=== PATIENT | female | born 1960 | race Caucasian/White ===

== ENCOUNTER 2018-02-19 12:06 | Inpatient (IN) | payer OTHER ==
[~2018-02-19] VITALS: Ht 162.6 cm; Wt 85.5 kg
--- NOTE | ~2018-02-19 | OP ---
PATIENT NAME: KELLEN MARIN MEDICAL RECORD: [id number] :56 LOCATION:D.M2 D.2140 ADMISSION DATE:02/19/18 SURGEON: MICHAEL VÁZQUEZ MD DATE OF OPERATION: 02/20/2018 PREOPERATIVE DIAGNOSIS: Left neck abscess post incision and drainage. POSTOPERATIVE DIAGNOSIS: Left neck abscess post incision and drainage. PROCEDURE: Excisional debridement of left neck abscess with curettage and packing. Excisional debridement dimensions, including margins, measured 1.4 x 1.0-cm including skin and subcutaneous tissue as well as abscess cavity. I debrided back to a bleeding viable tissue. SURGEON: Michael Vázquez MD CREDENTIALING MANAGER: None. BLOOD LOSS: Minimal. ANESTHESIA: General. COMPLICATIONS: None. The risks, possible complications, and alternatives to procedure were explained to the patient. She elects to proceed. I specifically discussed with her the possibility of left cranial nerve XI injury. OPERATIVE COURSE: The patient was conveyed to the operating room electively on 02/20/2018. General anesthesia was induced by the anesthesia staff. The left neck was sterilely prepped and draped. Through the use of double curvilinear incisions, I excised the skin and subcutaneous tissue as well as a portion of the abscess cavity. I then gently curettaged the abscess cavity, which led inferiorly. I also performed some blunt dissection in the abscess cavity as well. Purulence was identified. It was cultured. I then irrigated with hydrogen peroxide. I then packed the wound with half-inch iodoform gauze. A sterile dressing was applied. The patient was then extubated and conveyed to the post-anesthesia care unit, where she was in stable condition. She had good XI cranial nerve function in the recovery room. I anticipate that she is going to require intravenous antibiotics for several more days while in the hospital. TRANSINT:[id number] Voice Confirmation ID: [id number] DOCUMENT ID: [id number] MICHAEL VÁZQUEZ MD at 3966 CC: JIM LINO [id number] DICTATION DATE: 02/20/18 1150 MUSEUM EXHIBIT TECHNICIAN: 02/20/18 1536 ADM IN [place] [id number] [place] [address]
--- NOTE | ~2018-02-19 | HP ---
PATIENT: KELLEN MARIN MEDICAL RECORD: [id number] ACCOUNT: [id number] LOCATION:. D.2140 : 56 ADMISSION DATE: 02/19/18 HISTORY AND PHYSICAL EXAMINATION DATE OF ADMISSION: 02/19/2018 CHIEF COMPLAINT: A 57-year-old female who had presented to the clinic approximately 3 days ago. She complained of having picked a pimple on the left side of her neck. This apparently had worsened. She is accompanied by her today. She states actually she developed the lesion approximately one week ago, but did not followup. The patient reports having chills. She has had sweats. Earlier in the week, we had I&D'd this, placed her on Rocephin as well as Bactrim DS. Purulent material returned. She also had culture performed. She presented yesterday for followup, less erythematous, less edematous. The patient presents today, states she cannot stand the pain, wishes to be placed in the hospital. PAST MEDICAL HISTORY: Her past history is significant in that she has had hysterectomy, history of anxiety as well as chronic back pain. She has had depression, restless leg syndrome. FAMILY HISTORY: Apparently Alzheimer's as well as Parkinson's runs in the family. SOCIAL HISTORY: The patient is and mother of 2. She has worked in administration in the past. Currently, is unemployed secondary to chronic pain. HABITS: Never a smoker, but does have moderate amount of alcohol. ALLERGIES: No known drug allergies. MEDICATIONS: Include Ventolin HFA 90 mcg two puffs q. 4 hours p.r.n. shortness of breath, recently placed on Bactrim DS one p.o. b.i.d., Wellbutrin 150 mg once a day, Flexeril 10 mg p.o. at bedtime, Cymbalta 90 mg daily, etodolac 400 mg p.o. b.i.d., gabapentin 600 mg p.o. at bedtime, hydrocodone 10/325 one every 4 hours p.r.n. severe pain, and Mirapex 0.25 p.o. at bedtime. REVIEW OF SYSTEMS: CONSTITUTIONAL: She denies any headache, seizure, or syncope. Denies change in visual or auditory acuity. PULMONARY: She denies any shortness of breath, cough, congestion, history of TB, asthma, or bronchitis. CARDIOVASCULAR: She has had no chest pain, palpitation, PND, or orthopnea. GI: No chronic nausea, vomiting, melena, hematochezia. GENITOURINARY: No urgency, frequency, or dysuria. PHYSICAL EXAMINATION: VITAL SIGNS: The patient's weight is 187 pounds. Her blood pressure is 158/86, pulse 96, respirations 12, temperature is 97. HEENT: Her head is normocephalic. No lesion. The patient does have an abscess on the left side of the neck. There is induration of approximately 10-12 cm with purulent material return from previous I&D site. Very tender to touch. She has submandibular adenopathy. She has no meningeal signs. HEENT: Otherwise is normal. HISTORY AND PHYSICAL [id number] KELLEN MARIN NECK: Supple. There is no adenopathy. HEART: Regular rate and rhythm without any murmurs, gallops, or rubs. LUNGS: Clear. ABDOMEN: Soft. Bowel sounds are positive. ASSESSMENT: 1. Left neck abscess secondary to Staphylococcus aureus with cultures positive. 2. Depression. 3. Chronic back pain. 4. Anxiety. PLAN: The patient will be admitted. She will be placed on vancomycin 1 gram IV q. 12 hours. Pharmacy will adjust peak and trough. Surgical consultation will be obtained. She will also have a CT of soft tissue of the neck. TRANSINT:[id number] Voice Confirmation ID: [id number] DOCUMENT ID: [id number] JIM LINO MD at 0634 CC: [id number] DICTATION DATE: 02/19/18 1443 ELECTRODE CLEANING MACHINE OPERATOR: 02/19/18 1607 ADM IN [place] [id number] [place] [address]
--- NOTE | ~2018-02-19 | CN ---
PATIENT NAME:KELLEN MARIN MEDICAL RECORD: [id number] : 56 LOCATION:D.M2 D.2140 ADMIT DATE: 02/19/18 ACCOUNT: [id number] CONSULTING PHYSICIAN: GLORIA VÁZQUEZ MD REFERRING PHYSICIAN: JIM LINO MD DATE OF CONSULTATION: 02/19/2018 CHIEF COMPLAINT: Pain. HISTORY OF PRESENT ILLNESS: The patient has a left neck abscess. It starts from an area over the mastoid bone and goes down the left side of the neck. I personally reviewed the CT images. She has got no trismus. No Dawson's angina. The area is bright red and is very indurated. The patient had undergone an incision and drainage procedure by Dr. Jim Lino. This revealed Staphylococcus aureus, which was oxacillin resistant, so this is an MRSA abscess. Palpation aggravates. Nothing alleviates. Symptoms are recent onset. The wound is currently draining. This is a consultation note addendum. For the typed portion of the consult note, please see the chart. This would include the past medical and surgical history, current medications, allergies, social history as well as family history. REVIEW OF SYSTEMS: No nausea, no vomiting. Positive for left neck pain. No fever. The review of systems is negative other than as is described above. PHYSICAL EXAMINATION: GENERAL: The patient does appear acutely ill. He does not appear chronically ill. The entire physical examination was performed in the presence of a female nurse. VITAL SIGNS: Reviewed. EARS: External ears appear normal. EYES: Extraocular movements are intact. NECK: Trachea is midline. CHEST: No intercostal retractions. PULMONARY: Nonlabored, no stridor. ABDOMEN: No peritonitis with movement. EXTREMITIES: No peripheral cyanosis. INTEGUMENT: Erythematous draining wound on the left side of the neck. PSYCHIATRIC: Anxious affect. NEUROLOGIC: Answers questions appropriately, moves all extremities well. Good cranial nerve XI function on the left. BACK: No thoracic kyphosis. IMPRESSION: Left neck abscess post incision and drainage. PLAN: Excisional debridement with packing in the operating room. Continue IV antibiotics. TRANSINT:[id number] Voice Confirmation ID: [id number] DOCUMENT ID: [id number] CONSULT REPORT [id number] TANIAKELLEN Persaud GLORIA SIMMS MD at 1742 CC: [id number] DICTATION DATE: 02/20/18 1512 REGISTER CLERK: 02/20/18 1532 ADM IN [place] [id number] [place] [id number]
--- NOTE | ~2018-02-19 | DS ---
PATIENT:KELLEN MARIN :56 MEDICAL RECORD: [id number] DISCHARGE SUMMARY ADMISSION DATE: 02/19/18 DISCHARGE DATE: 02/25/18 DATE OF ADMISSION: 02/19/2018 DATE OF DISCHARGE: 02/25/2018 CONDITION ON DISCHARGE: Improved. ADMITTING DIAGNOSIS: Left neck abscess, felt to be secondary to methicillin-resistant Staph; history of depression; chronic low back pain; anxiety. DISCHARGE DIAGNOSES: Cutaneous abscess, left side of neck; history of depression; anxiety; methicillin-resistant Staph. GUIDANCE SERVICES COORDINATOR: Michael Fall MD HOSPITAL COURSE: The patient is a 57-year-old female who had presented to the clinic complaining of having pain on the left side of the neck. She was found to have an abscess. This was I&D'd. Cultures were obtained. She was placed on Rocephin as well as Bactrim. Over the coming days, her condition continued to worsen. It was felt that she had failed outpatient therapy; therefore, she was admitted. PHYSICAL EXAMINATION: VITAL SIGNS: On the day she was admitted, weight was 187. Blood pressure 158/86, pulse 96, respirations 12, temperature 97. GENERAL: She was alert. She was oriented times 3. HEENT: Unremarkable. The patient does have a 10- to 12-cm fluctuant lesion on left side of the neck. Prior I&D was present. Very tender to touch. She had some shotty submandibular adenopathy. It was felt the patient warranted admission. She was admitted, placed on vancomycin 1 gram q. [address] of the neck was ordered. Soft tissue CT revealed no evidence of mass or drainable fluid collection. Findings suggested of myositis on the proximal left sternocleidomastoid muscle with overlying infiltrative changes, consistent with cellulitis. There was a linear track extending to the skin from that area, which may be postprocedural and posttraumatic in nature. She was seen in consultation by Dr. Fall as well as Dr. Hernandez. The patient was taken to the operating room, where she underwent I&D, drainage from superior and inferior lesion. The abscess was packed. On February 25, the patient was stable. It was felt she could be discharged. Therefore, she was discharged on Bactrim-DS one p.o. b.i.d. for 10 days, Flexeril 10 mg p.o. b.i.d. p.r.n. muscle spasm, Lapoint 10/325 one every 4 hours p.r.n. severe pain, Mirapex 0.25 p.o. at bedtime, Claritin-D one every 12 hours p.r.n. congestion, Cymbalta 60 mg p.o. daily, Wellbutrin 150 mg once a day, Neurontin 600 mg p.o. at bedtime, Lodine 400 mg p.o. b.i.d., Bactroban intranasal ointment b.i.d. times 2 weeks. The patient's diet is regular. She is to follow up with me on the following . TRANSINT:[id number] Voice Confirmation ID: [id number] DOCUMENT ID: [id number] DISCHARGE SUMMARY REPORT [id number] KELLEN MARIN JAMES MD at 0701 CC: [id number] DICTATION DATE: 03/30/18 1513 ETL DATABASE DEVELOPER: 03/31/18 0104 DIS IN 02/25/18 [place] [id number] [place] [address]
[2018-02-19] MEDS ORDERED: BACTRIM DS TABL1 TAB PO (14:08)
[2018-02-19] MEDS ORDERED: CYCLOBENZAPRINE10 MG PO (14:09)
[2018-02-19] MEDS ORDERED: HYDROCODONE-APA1 TAB PO (14:10)
[2018-02-19] MEDS ORDERED: MIRAPEX0.25 MG PO (14:10)
[2018-02-19] MEDS ORDERED: CLARINEX-D 11 BOTTLE PO (14:11)
[2018-02-19] MEDS ORDERED: CYMBALTA60 MG PO (14:12)
[2018-02-19] MEDS ORDERED: BUPROPION XL150 MG PO (14:13)
[2018-02-19] MEDS ORDERED: NEURONTIN600 MG PO (14:14)
[2018-02-19] MEDS ORDERED: LODINE400 MG PO (14:16)
[2018-02-19 14:38] LABS: BASOPHILS 0.3 % (0-2); HEMATOCRIT 38.8 % (36.0-48.0); HEMOGLOBIN 12.4 g/dL (12-16); IMMATURE GRANULOCYTES 0.5 % (0-5); LYMPHOCYTES 19.2 % (15-50); MCH 28.8 pg (26.0-34.0); MCV 90.2 fL (80.0-100.0); MEAN PLATELET VOLUME 11.2 fL (7.4-10.4); MONOCYTES 6.9 % (2-11); NEUTROPHILS 68.1 % (40-80); PLATELET COUNT 247 10x3/uL (130-400); RDW 13.6 % (11.5-14.5); WBC 7.4 10x3/uL (4.8-10.8)
[2018-02-19 14:50] LABS: CALC OSMOLALITY 286 mosm/kg (275-300); CALCIUM 8.5 mg/dL (8.5-10.1); CARBON DIOXIDE 25.6 mmol/L (21.0-32.0); CHLORIDE - SERUM 106 mmol/L (98-107); CREATININE - SERUM 0.8 mg/dL (0.6-1.3); GLUCOSE 110 mg/dL (74-106); POTASSIUM - SERUM 3.8 mmol/L (3.5-5.1); SODIUM 143 mmol/L (136-145); UREA NITROGEN 15 mg/dL (7-18); eGFR NON AFRICAN AMERICAN 78 mL/min (90-120)
[2018-02-19 15:02] VITALS: BP 147/62; Ht 162.6 cm; Wt 85.5 kg
[2018-02-19 15:52] VITALS: BP 132/68
[2018-02-19 20:58] VITALS: BP 150/79
[2018-02-20 05:02] LABS: BASOPHILS 0.2 % (0-2); EOSINOPHILS 6.9 % (0-7); HEMATOCRIT 34.9 % (36.0-48.0); HEMOGLOBIN 11.2 g/dL (12-16); IMMATURE GRANULOCYTES 0.8 % (0-5); LYMPHOCYTES 24.1 % (15-50); MCH 28.7 pg (26.0-34.0); MCHC 32.1 g/dL (31.0-37.0); MCV 89.5 fL (80.0-100.0); MEAN PLATELET VOLUME 10.6 fL (7.4-10.4); MONOCYTES 6.1 % (2-11); NEUTROPHILS 61.9 % (40-80); PLATELET COUNT 222 10x3/uL (130-400); RDW 13.6 % (11.5-14.5)
[2018-02-20 05:21] LABS: WBC 4.8 10x3/uL (4.8-10.8)
[2018-02-20 05:27] LABS: CALC OSMOLALITY 281 mosm/kg (275-300); CARBON DIOXIDE 24.7 mmol/L (21.0-32.0); CHLORIDE - SERUM 107 mmol/L (98-107); CREATININE - SERUM 0.7 mg/dL (0.6-1.3); GLUCOSE 87 mg/dL (74-106); POTASSIUM - SERUM 3.7 mmol/L (3.5-5.1); SODIUM 142 mmol/L (136-145); UREA NITROGEN 12 mg/dL (7-18); eGFR NON AFRICAN AMERICAN > 90 mL/min (90-120)
[2018-02-20 05:58] VITALS: BP 177/91
[2018-02-20 07:49] VITALS: BP 122/64
[2018-02-20 10:57] VITALS: BP 128/71
[2018-02-20 21:42] VITALS: BP 137/67
[2018-02-21 05:32] VITALS: BP 140/68
[2018-02-21 05:47] LABS: BASOPHILS 0.2 % (0-2); EOSINOPHILS 0.5 % (0-7); HEMATOCRIT 36.2 % (36.0-48.0); HEMOGLOBIN 11.5 g/dL (12-16); IMMATURE GRANULOCYTES 3.4 % (0-5); LYMPHOCYTES 22.8 % (15-50); MCH 28.8 pg (26.0-34.0); MCHC 31.8 g/dL (31.0-37.0); MCV 90.5 fL (80.0-100.0); MEAN PLATELET VOLUME 10.7 fL (7.4-10.4); MONOCYTES 7.8 % (2-11); NEUTROPHILS 65.3 % (40-80); RDW 13.7 % (11.5-14.5)
[2018-02-21 05:53] LABS: PLATELET COUNT 272 10x3/uL (130-400); WBC 6.4 10x3/uL (4.8-10.8)
[2018-02-21 06:02] LABS: ANION GAP 14.2 mmol/L (8-16); CALCIUM 8.5 mg/dL (8.5-10.1); CARBON DIOXIDE 24.7 mmol/L (21.0-32.0); POTASSIUM - SERUM 3.9 mmol/L (3.5-5.1)
[2018-02-21 06:05] LABS: CREATININE - SERUM 0.9 mg/dL (0.6-1.3)
[2018-02-21 07:40] VITALS: BP 132/71
[2018-02-21 11:52] VITALS: BP 160/60
[2018-02-21 15:24] VITALS: BP 148/69
[2018-02-21 20:00] VITALS: BP 137/76
[2018-02-22 05:44] LABS: BASOPHILS 0.7 % (0-2); EOSINOPHILS 6.3 % (0-7); HEMOGLOBIN 11.7 g/dL (12-16); IMMATURE GRANULOCYTES 8.7 % (0-5); LYMPHOCYTES 34.4 % (15-50); MCH 28.7 pg (26.0-34.0); MCHC 31.6 g/dL (31.0-37.0); MCV 90.9 fL (80.0-100.0); MONOCYTES 9.9 % (2-11); PLATELET COUNT 249 10x3/uL (130-400); RBC 4.07 10x6/uL (4.00-5.40); RDW 13.7 % (11.5-14.5); WBC 7.3 10x3/uL (4.8-10.8)
[2018-02-22 06:31] LABS: CALC OSMOLALITY 289 mosm/kg (275-300); CALCIUM 8.6 mg/dL (8.5-10.1); CARBON DIOXIDE 24.6 mmol/L (21.0-32.0); CHLORIDE - SERUM 108 mmol/L (98-107); CREATININE - SERUM 0.7 mg/dL (0.6-1.3); GLUCOSE 114 mg/dL (74-106); POTASSIUM - SERUM 3.3 mmol/L (3.5-5.1); SODIUM 145 mmol/L (136-145); UREA NITROGEN 13 mg/dL (7-18); eGFR NON AFRICAN AMERICAN > 90 mL/min (90-120)
[2018-02-22 09:14] VITALS: BP 125/95
[2018-02-22 12:23] VITALS: BP 137/70
[2018-02-22 16:39] VITALS: BP 130/82
[2018-02-23 05:48] VITALS: BP 139/70
[2018-02-23 08:02] VITALS: BP 145/75
[2018-02-23 11:16] VITALS: BP 141/70
[2018-02-23 15:01] VITALS: BP 136/61
[2018-02-23 20:00] VITALS: BP 135/63
[2018-02-24] VITALS: BP 144/84
[2018-02-24 04:00] VITALS: BP 150/80
[2018-02-24 09:17] VITALS: BP 123/67
[2018-02-24 10:44] VITALS: BP 131/72
[2018-02-24 15:17] VITALS: BP 121/72
[2018-02-24 19:42] VITALS: BP 128/71
[2018-02-25 00:58] VITALS: BP 151/73
[2018-02-25 04:00] VITALS: BP 125/76
[2018-02-25] MEDS ORDERED: BACTROBAN NASAL1 GM NASAL (06:52)
[2018-02-25 07:46] VITALS: BP 135/71
== END 2018-02-25 15:52 | disposition home or self-care (01) | DRG 572 ==
LOC: D.M2 12:06 → D.SDCHOLD 14:52 → D.M2 02-25 15:52
PROVIDERS: Family Medicine; Surgery
PROC: 0JB50ZZ Excision of Left Neck Subcutaneous Tissue and Fascia, Open Approach (ICD-10-PCS; principal; 2018-02-20 12:25)
DX: L02.11 Cutaneous abscess of neck (principal); F32.9 Major depressive disorder, single episode, unspecified; F41.9 Anxiety disorder, unspecified; M54.9 Dorsalgia, unspecified; G89.29 Other chronic pain; B95.62 Methicillin resistant Staphylococcus aureus infection as the cause of diseases classified elsewhere

== ENCOUNTER → 2019-02-03 18:50 | Outpatient (CLI) | payer OTHER ==
[~2019-02-03 18:50] MED LIST: BACTRIM DS TABL1 TAB PO; BACTROBAN NASAL1 GM NASAL; BUPROPION XL150 MG PO; CLARINEX-D 11 BOTTLE PO; CYCLOBENZAPRINE10 MG PO; CYMBALTA60 MG PO; HYDROCODONE-APA1 TAB PO; LODINE400 MG PO; MIRAPEX0.25 MG PO; NEURONTIN600 MG PO
== END | disposition home or self-care (01) ==
LOC: D.MAMMO 18:50
DX: Z12.31 Encounter for screening mammogram for malignant neoplasm of breast (principal)

== ENCOUNTER → 2019-02-18 15:59 | Outpatient (CLI) | payer OTHER ==
[2018-02-19 15:02] VITALS: BMI 31.8
== END | disposition home or self-care (01) ==
LOC: D.US 13:00 → D.MAMMO 14:30 → D.US 15:59 → D.MAMMO 03-04 14:30
PROVIDERS: ATTEND Family Medicine
DX: R92.2 Inconclusive mammogram (principal)

== ENCOUNTER → 2020-08-10 08:09 | Outpatient (CLI) | payer OTHER ==
[2018-02-19 15:02] VITALS: BMI 31.8
== END | disposition home or self-care (01) ==
LOC: D.RAD 08:09
PROVIDERS: ATTEND Internal Medicine Gastroenterology
DX: K44.9 Diaphragmatic hernia without obstruction or gangrene (principal)